=== PATIENT | female | born 1965 | race Two or more races ===

== ENCOUNTER 2022-06-29 14:09 | Inpatient (IN) | payer OTHER ==
[~2022-06-29] VITALS: Ht 162.6 cm; Wt 59.0 kg
[2022-07-26] MEDS ORDERED: NAPR500T14 PO (10:58)
== END 2022-07-26 13:05 | disposition home or self-care (01) | DRG 515 ==
LOC: ER 14:09 → MEDJ 19:34 → MEDI 19:34 → MEDJ 07-03 17:27
PROVIDERS: ADMIT Internal Medicine; ATTEND Internal Medicine
PROC: BW25ZZZ Computerized Tomography (CT Scan) of Chest, Abdomen and Pelvis (ICD-10-PCS; 2022-07-02)
PROC: BW2F1ZZ Computerized Tomography (CT Scan) of Neck using Low Osmolar Contrast (ICD-10-PCS; 2022-07-02)
PROC: CW1NLZZ Planar Nuclear Medicine Imaging of Whole Body using Gallium 67 (Ga-67) (ICD-10-PCS; 2022-07-05)
PROC: CW3NYZZ Positron Emission Tomographic (PET) Imaging of Whole Body using Other Radionuclide (ICD-10-PCS; 2022-07-05)
PROC: 07B63ZX Excision of Left Axillary Lymphatic, Percutaneous Approach, Diagnostic (ICD-10-PCS; principal; 2022-07-10)
PROC: BW24ZZZ Computerized Tomography (CT Scan) of Chest and Abdomen (ICD-10-PCS; 2022-07-11)
PROC: 0W993ZZ Drainage of Right Pleural Cavity, Percutaneous Approach (ICD-10-PCS; 2022-07-12)
PROC: 02HV33Z Insertion of Infusion Device into Superior Vena Cava, Percutaneous Approach (ICD-10-PCS; 2022-07-12)
PROC: 30243N1 Transfusion of Nonautologous Red Blood Cells into Central Vein, Percutaneous Approach (ICD-10-PCS; 2022-07-16)
PROC: BW211ZZ Computerized Tomography (CT Scan) of Abdomen and Pelvis using Low Osmolar Contrast (ICD-10-PCS; 2022-07-21)
PROC: 0HBHXZX Excision of Right Upper Leg Skin, External Approach, Diagnostic (ICD-10-PCS; 2022-07-24)
PROC: B24BYZZ Ultrasonography of Heart with Aorta using Other Contrast (ICD-10-PCS; 2022-07-24)
PROC: BW2F1ZZ Computerized Tomography (CT Scan) of Neck using Low Osmolar Contrast (ICD-10-PCS; 2022-07-24)
DX: M06.1 Adult-onset Still's disease (principal); J18.9 Pneumonia, unspecified organism; J39.1 Other abscess of pharynx; N39.0 Urinary tract infection, site not specified; J98.11 Atelectasis; J91.8 Pleural effusion in other conditions classified elsewhere; L50.9 Urticaria, unspecified; R59.0 Localized enlarged lymph nodes; M19.90 Unspecified osteoarthritis, unspecified site; N80.9 Endometriosis, unspecified; J45.909 Unspecified asthma, uncomplicated; D75.838 Other thrombocytosis; D64.89 Other specified anemias; M25.50 Pain in unspecified joint; M79.10 Myalgia, unspecified site; L30.8 Other specified dermatitis